=== PATIENT | female | born 1935 | race Caucasian/White ===

== ENCOUNTER 2022-05-07 01:27 | Inpatient (IN) | payer MEDICARE, BC ==
[~2022-05-07] VITALS: Ht 157.5 cm; Wt 59.0 kg
[2022-05-07] MEDS ORDERED: OXYCODONE/APAP 5-325 MG TABLET ONE (02:42)
[2022-05-07] MEDS: ONDANSETRON 4 MG/2 ML VIAL IV ONE ×2 (03:00→04:30)
[2022-05-07] MEDS: HYDROMORPHONE 1 MG/1 ML DISP.SYRIN IV ONE ×2 (03:01→04:31)
[2022-05-07] MEDS ORDERED: MONT10TA22 PO (03:46)
[2022-05-07] MEDS ORDERED: AMLO2.5T4 PO (03:46)
[2022-05-07] MEDS ORDERED: FLUT16SP BNOSTRILS (03:46)
[2022-05-07] MEDS ORDERED: LEVO75TA PO (03:47)
[2022-05-07 03:48] LABS: CARBON DIOXIDE 24 mmol/L (21-32); CHLORIDE 98 mmol/L (98-107); CREATININE 0.9 mg/dL (0.6-1.3); GLUCOSE 138 mg/dL (74-106); POTASSIUM 4.2 mmol/L (3.5-5.1); UREA NITROGEN, BLOOD 27 mg/dL (7-18)
[2022-05-07 03:49] LABS: HEMATOCRIT 38.5 % (31.2-41.9); MEAN CORPUSCULAR HEMOGLOBIN 31.5 uug (24.7-32.8); MEAN CORPUSCULAR VOLUME 95.4 fL (75.5-95.3); PLATELET COUNT (AUTO) 255 K/uL (179-408)
[2022-05-07] MEDS ORDERED: VALS160T2 PO (03:49)
[2022-05-07] MEDS ORDERED: ALBU18HF2 INH (03:51)
[2022-05-07 04:01] LABS: *BILIRUBIN,URIN NEGATIVE (NEGATIVE); *BLOOD, URINE NEGATIVE (NEGATIVE); *CLARITY,URINE CLEAR (CLEAR); *COLOR,URINE LIGHT YELLOW (YELLOW); *KETONES,URINE 2+ (NEGATIVE); *UROBILINOGEN,URINE 0.2 E.U./dl (NORMAL); LEUKOCYTE ESTERASE ,URINE NEGATIVE (NEGATIVE); NITRITE, URINE NEGATIVE (NEGATIVE); UGLUCOSE NEGATIVE (NEGATIVE)
[2022-05-07] MEDS ORDERED: ONDANSETRON 4 MG/2 ML VIAL ONE ×2 (04:25→16:30)
[2022-05-07] MEDS ORDERED: HYDROMORPHONE 1 MG/1 ML DISP.SYRIN ONE (04:25)
[2022-05-07] MEDS ORDERED: IV NS 1000 ML 1,000 ML IV ONE (05:00)
[2022-05-07] MEDS ORDERED: HYDROCODONE/APAP 5-325MG TABLET PO PRN (06:15)
[2022-05-07] MEDS ORDERED: IV NS 1000 ML 1,000 ML IV PRN (06:15)
[2022-05-07] MEDS ORDERED: REMEDY ESSENTIAL ZINC PASTE 113 GM TP PRN (06:15)
[2022-05-07] MEDS ORDERED: ACETAMINOPHEN 325 MG TABLET PO PRN (06:15)
[2022-05-07] MEDS ORDERED: MORPHINE SULFATE 2 MG/1 ML DISP.SYRIN IV PRN (06:15)
[2022-05-07] MEDS ORDERED: MAGNESIUM HYDROXIDE 30 ML LIQUID UDC PO PRN (06:15)
--- NOTE | 2022-05-07 07:19 | NUR ---
Report given to Wiley PEÑA.
--- NOTE | 2022-05-07 08:42 | NUR ---
PT WAS TRANSFERED TO ROOM #323. REPORT WAS GIVEN TO RN M/S.
--- NOTE | 2022-05-07 09:00 | NUR ---
Pt admitted form ER for tibial fracture discovered by SN[facility]. 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 Pt is able to communicate needs, on bedrest with complaints of pain in left leg. Plan is to have procedure ORIF of distal tibia and fibula of left leg by Dr. Long tomorrow 05/08/22 at 1 pm. Pending cardiac clearance. Will continue to monitor pt.
[2022-05-07 09:27] VITALS: BP 150/74
[2022-05-07] MEDS: MORPHINE SULFATE 2 MG/1 ML DISP.SYRIN IV PRN ×3 (11:07→20:46)
[2022-05-07 12:00] VITALS: BP 98/65
[2022-05-07] MEDS ORDERED: CITA40TA11 PO (12:33)
[2022-05-07] MEDS ORDERED: ALBUTEROL SULFATE 8 GM HFA.AER.AD INH PRN (14:45)
[2022-05-07] MEDS ORDERED: ALBUTEROL SULFATE 2.5 MG/3 ML NEBU NEB PRN ×2 (15:30→16:00)
[2022-05-07] MEDS ORDERED: FLUT10.62 IH (15:30)
[2022-05-07 16:10] VITALS: BP 125/86
[2022-05-07] MEDS ORDERED: CEFAZOLIN 1 G VIAL ONE (16:30)
[2022-05-07] MEDS ORDERED: LIDOCAINE-MPF 2% 5 ML VIAL ONE (16:30)
[2022-05-07] MEDS ORDERED: PROPOFOL 200 MG/20 ML BOTTLE ONE (16:30)
[2022-05-07] MEDS ORDERED: EPHEDRINE SULFATE 50 MG/ML AMPUL ONE (16:30)
[2022-05-07] MEDS ORDERED: DEXAMETHASONE SOD PHOSPHATE 4 MG INJ ONE (16:30)
[2022-05-07] MEDS ORDERED: AMLODIPINE 2.5 MG TABLET PO SCH (17:00)
[2022-05-07] MEDS: AMLODIPINE 2.5 MG TABLET PO SCH (17:13)
--- NOTE | 2022-05-07 17:13 | NUR ---
Pt complaining of left groin pain radiating to entire leg, notified MD, imaging ordered per MD. Consent signed by son for procedure tomorrow.
[2022-05-07] MEDS ORDERED: MONTELUKAST SODIUM 10 MG TABLET PO SCH (18:00)
[2022-05-07 20:00] VITALS: BP 153/83
[2022-05-07] MEDS: ONDANSETRON 4 MG/2 ML VIAL IV PRN (20:45)
[2022-05-07] MEDS: VALSARTAN 160 MG TABLET PO SCH (20:45)
[2022-05-08] MEDS: MORPHINE SULFATE 2 MG/1 ML DISP.SYRIN IV PRN ×3 (01:04→23:03)
[2022-05-08 04:00] VITALS: BP 148/75
[2022-05-08] MEDS: LEVOTHYROXINE SODIUM 75 MCG TABLET PO SCH ×2 (07:12→07:20)
[2022-05-08 07:27] LABS: HEMATOCRIT 36.1 % (31.2-41.9); MEAN CORPUSCULAR HEMOGLOBIN 32.4 uug (24.7-32.8); MEAN CORPUSCULAR VOLUME 94.1 fL (75.5-95.3); PLATELET COUNT (AUTO) 238 K/uL (179-408)
--- NOTE | 2022-05-08 07:28 | NUR ---
Received report from am nurse Kavitha on 05/07/02 pt is alert and oriented at start of shift pt asked for pain medication gave morphine 2 times during the shift and afterward gave one dose of norco 5/325 given for breakthrough pain no signs of respiratory distress noted.
[2022-05-08 08:17] LABS: CREATININE 0.7 mg/dL (0.6-1.3); MAGNESIUM 1.9 mg/dL (1.8-2.4); PHOSPHOROUS 3.2 mg/dL (2.5-4.9); POTASSIUM 4.1 mmol/L (3.5-5.1)
[2022-05-08] MEDS ORDERED: CITALOPRAM 20 MG TABLET PO SCH (09:00)
[2022-05-08] MEDS ORDERED: AMLODIPINE 2.5 MG TABLET PO SCH (09:00)
[2022-05-08] MEDS ORDERED: Medication Not On Formulary EA (Citalopram Hydrobromide (Citalopram Hbr) 40 MG) PO SCH (09:00)
[2022-05-08] MEDS ORDERED: FLUTICASONE PROP NASAL SPRAY 16 GM BOTTLE NS SCH (09:00)
[2022-05-08] MEDS: CITALOPRAM 20 MG TABLET PO SCH (09:26)
[2022-05-08 09:30] VITALS: BP 139/72
[2022-05-08] MEDS: AMLODIPINE 2.5 MG TABLET PO SCH ×2 (09:31→17:00)
[2022-05-08] MEDS: VALSARTAN 160 MG TABLET PO SCH (09:31)
[2022-05-08] MEDS ORDERED: BUPIVACAINE/EPI PF 0.25% 10 ML VIAL IJ ONE (09:53)
[2022-05-08] MEDS ORDERED: VANCOMYCIN 1000 MG VIAL ONE (09:53)
--- NOTE | 2022-05-08 12:45 | NUR ---
Pt is a/o x 3, taken to OR for procedure of ORIF of left tibia and fibula fracture by Dr. Long. IV intact and patent Monteiro will be inserted by OR nurse. Notified nurse that family would like to be contacted by doctor post op. Vitals stable upon transfer.
[2022-05-08 12:48] VITALS: BP 126/59
[2022-05-08] MEDS ORDERED: ALBUTEROL SULFATE 8 GM HFA.AER.AD ONE (12:59)
[2022-05-08] MEDS ORDERED: HYDROMORPHONE 2 MG/1 ML DISP.SYRIN ONE (13:00)
[2022-05-08] MEDS ORDERED: RACEPINEPHRINE HCL 2.25% 0.5 ML NEBU ONE (15:30)
[2022-05-08] MEDS ORDERED: ALBUTEROL SULFATE 2.5 MG/3 ML NEBU ONE (15:32)
[2022-05-08] MEDS ORDERED: IPRATROPIUM BROMIDE 0.5 MG/2.5 ML NEBU NEB PRN (17:30)
[2022-05-08] MEDS ORDERED: ALBUTEROL SULFATE 2.5 MG/ 0.5 ML NEBU IH PRN (17:30)
[2022-05-08] MEDS ORDERED: methylPREDNISolone SOD SUCC 40 MG/ML VIAL IV ONE (17:30)
--- NOTE | 2022-05-08 18:36 | NUR ---
Pt post op in recovery, got report from charge nurse that pt will be transferred to ICU overnight. All personal belongings sent home with sister and son including artem fartunlinda in contraband locker.
[2022-05-08] MEDS ORDERED: HYDROMORPHONE 1 MG/1 ML DISP.SYRIN ONE (20:12)
[2022-05-08 22:28] VITALS: BP 133/66
[2022-05-08] MEDS ORDERED: MORPHINE SULFATE 2 MG/1 ML DISP.SYRIN ONE (22:53)
[2022-05-08 23:00] VITALS: BP 125/63
[2022-05-09] VITALS (12 sets, daily range): BP systolic 86–145; BP diastolic 48–72
[2022-05-09] MEDS ORDERED: VALSARTAN 80 MG TABLET ONE (00:41)
[2022-05-09] MEDS: CHOLECALCIFEROL 1,000 UNIT TABLET PO SCH ×2 (00:45→13:06)
[2022-05-09] MEDS ORDERED: MAGNESIUM SULFATE/D5W 100 ML ONE ×2 (00:50→03:19)
[2022-05-09] MEDS: MAGNESIUM SULFATE/D5W 100 ML IV SCH ×2 (00:52→01:45)
[2022-05-09] MEDS ORDERED: CHOLECALCIFEROL 1,000 UNIT TABLET ONE (01:00)
[2022-05-09] MEDS ORDERED: HYDROMORPHONE 1 MG/1 ML DISP.SYRIN ONE ×2 (01:21→07:16)
[2022-05-09] MEDS: HYDROMORPHONE 1 MG/1 ML DISP.SYRIN IV PRN ×2 (01:27→06:45)
[2022-05-09] MEDS ORDERED: ONDANSETRON 4 MG/2 ML VIAL ONE (01:28)
[2022-05-09] MEDS: ONDANSETRON 4 MG/2 ML VIAL IV PRN (01:29)
[2022-05-09] MEDS: CEFAZOLIN 1 G in IV DEXTROSE 5% 50 ML IV SCH ×2 (06:30→06:59)
[2022-05-09] MEDS ORDERED: CEFAZOLIN 1 G VIAL ONE (06:56)
[2022-05-09] MEDS: VALSARTAN 160 MG TABLET PO SCH ×4 (09:00→21:32)
[2022-05-09] MEDS: CITALOPRAM 20 MG TABLET PO SCH (09:00)
[2022-05-09] MEDS: AMLODIPINE 2.5 MG TABLET PO SCH ×2 (09:00→16:41)
[2022-05-09] MEDS ORDERED: CITALOPRAM 10 MG TABLET ONE (09:56)
[2022-05-09] MEDS ORDERED: AMLODIPINE 2.5 MG TABLET ONE (09:56)
--- NOTE | 2022-05-09 10:20 | NUR ---
Notified Stephanie Cordova NP that Dr. Kumar states patient is downgradable. Per Stephanie, patient can be downgraded to [facility].
[2022-05-09] MEDS ORDERED: MORPHINE SULFATE 2 MG/1 ML DISP.SYRIN ONE (11:32)
[2022-05-09] MEDS: MORPHINE SULFATE 2 MG/1 ML DISP.SYRIN IV PRN ×3 (11:40→16:41)
--- NOTE | 2022-05-09 12:00 | NUR ---
2228--1200-05/09/22--RECEIVED PT POST-OP FROM . PT HAS BEEN A/OX4 WITH STABLE VS ON AEROSOL FMK. POX HAS BEEN 96-99%. PT HAS OCCASS. NON-PROD. COUGH. PT HAS SPLINT ON LEFT LOWER LEG WITH SMALL AMT OF SERO-SANG. DRNGE. IV I/P VIA LEFT FA. PT MED WITH MG RIDERS-2G IVPB EARLIER. PT ALSO HAS F/C WITH CLOUDY-GRACIE U/O-ONLY 200CC OUT. PT HAD FLATULANCE-NO STOOL. PT MED WITH DILAUDID 1MG SLOW IVP FOR SEVERE C/O PAIN(SEE EMAR). PT MED RECENTLY AT 1130 WITH MS 2MG IVP PT RATES PAIN AT 8-10/10. PT STATES RELIEF AFTER MED. PT'S SISTER IN TO VISIT. ELENA ESCOBEDO IN TO EVAL. PT. HAS BEEN AT BEDSIDE ALSO FOR MED/EVAL AND TX. PT HAS 02 TITRATED DOWN TO 5L/NC.POX 95%. RESPS REG/UNLAB. REPORT CALLED TO TIGIST PEÑA. PT HAS DISPO FOR TRANSFER TO [id number]. PT ENDORSED TO [facility] FOR TRANSFER VIA BED. KAZ PEÑA
--- NOTE | 2022-05-09 12:30 | NUR ---
Received this transfer from CCU by bed. Awake, alert, oriented x 4, hard of hearing, anxious, reports of LLE pain. Vital taken and recorded. Placed on tele, SR. Repositioned in bed comfortably. O2 at 5L/NC with O2 sat of 97%. Placed on continuous pulse ox. IVF infusing. LLE dressing intact, noted blood on heel area. Monteiro catheter to drainage bag with yellow urine.
--- NOTE | 2022-05-09 14:00 | NUR ---
Sleeping, appears comfortable. O2 at 5L/NC with O2 sat 97%. BP 105/49
[2022-05-09] MEDS: POTASSIUM CHLORIDE 20 MEQ in IV D5 1/2 NS 1000 ML 1,000 ML IV PRN (15:40)
--- NOTE | 2022-05-09 18:06 | NUR ---
Encouraged po intake. IVF infusing well. O2 at 5L/NC with O2 sat of 97%. Repositioned comfortably.
[2022-05-09] MEDS: HYDROCODONE/APAP 5-325MG TABLET PO PRN (21:31)
[2022-05-10] VITALS (7 sets, daily range): BP systolic 91–125; BP diastolic 48–63
[2022-05-10] MEDS: HYDROMORPHONE 1 MG/1 ML DISP.SYRIN IV PRN ×4 (03:28→21:25)
[2022-05-10] MEDS: POTASSIUM CHLORIDE 20 MEQ in IV D5 1/2 NS 1000 ML 1,000 ML IV PRN (04:55)
--- NOTE | 2022-05-10 06:00 | NUR ---
--PT CONT. WITH STABLE VS. IV I/P VIA LEFT FA. PT HAS BEEN ON 5L/NC. POX HAS BEEN 97-98%. RESPS REG/UNLAB. PT HAS BEEN IN SR. PT HAS LEFT SPLINT VIA LL-LEG D/I. PT HAD C/O SEVERE PAIN IN LEFT LEG BUT SHE REFUSED THE MORPHINE AND REQUESTED DILAUDID INSTEAD. RANDAL CUEVA NOTIFIED AND ORD. NORCO 5/325 PO AND DILAUDID 1MG ONLY BREAKTHROUGH MED. PT MED WITH NORCO FOR C/O POST-OP PAIN OF LEFT LEG. LATER PT C/O SEVERE PAIN IN LEFT LEG AND WAS MED WITH DILAUDID 1MG SLOW IVP. PT RATED PAIN AT 9/10. PT STATES RELIEF AFTER MED. PT HAS F/C. U/O ADEQ. PT ATTEMPTED TO USE BEDPAN-NO STOOL BUT LOTS OF FLATULANCE. PT SLEEPING QUIETLY AT THIS TIME. AM CARE GIVEN. DR. INGRAM CALLING EARLIER AND GAVE ORDERS FOR AM LABS. PT ENDORSED TO [facility] STROUD IN STABLE COND. GEN. COND HAS BEEN STABLE. RESPS HAS BEEN STABLE. KAZ PEÑA
[2022-05-10 06:20] LABS: ABG BASE EXCESS -2.4 mmol/L; ABG HCO3 21.9 mmol/L; ABG PCO2 36.4 mmHg (35.0-45.0); ABG PH 7.398 (7.350-7.450); ABG PO2 61.6 mmHg (75.0-100.0); ABG SITE RIGHT RADIAL; ABG TOTAL HEMOGLOBIN 11.6 G/dL (12.0-16.0); O2Hb 93.1 % (94.0-97.0); VENT MODE Nasal Cannula
[2022-05-10] MEDS: LEVOTHYROXINE SODIUM 75 MCG TABLET PO SCH (07:00)
[2022-05-10 07:21] LABS: HEMATOCRIT 32.1 % (31.2-41.9); MEAN CORPUSCULAR HEMOGLOBIN 32.5 uug (24.7-32.8); MEAN CORPUSCULAR VOLUME 94.7 fL (75.5-95.3); PLATELET COUNT (AUTO) 216 K/uL (179-408)
[2022-05-10 08:05] LABS: CREATININE 0.8 mg/dL (0.6-1.3); PHOSPHOROUS 1.9 mg/dL (2.5-4.9); POTASSIUM 4.4 mmol/L (3.5-5.1)
[2022-05-10] MEDS: CITALOPRAM 20 MG TABLET PO SCH (10:02)
[2022-05-10] MEDS: CHOLECALCIFEROL 1,000 UNIT TABLET PO SCH (10:03)
[2022-05-10] MEDS: VALSARTAN 160 MG TABLET PO SCH ×2 (10:06→21:00)
[2022-05-10] MEDS: AMLODIPINE 2.5 MG TABLET PO SCH ×2 (10:06→16:23)
[2022-05-10] MEDS: CEFEPIME HCL 1 G in IV DEXTROSE 5% 50 ML IV SCH ×2 (11:34→18:24)
[2022-05-10] MEDS ORDERED: VITAMINS A AND D OINT TP PRN (11:45)
[2022-05-10] MEDS ORDERED: SODIUM PHOSPHATE MM 15 MMOL in IV NORMAL SALINE 250 ML IV ONE (16:00)
--- NOTE | 2022-05-10 17:06 | NUR ---
no events noted during shift
[2022-05-10] MEDS: HYDROCODONE/APAP 5-325MG TABLET PO PRN (18:34)
[2022-05-11] MEDS: POTASSIUM CHLORIDE 20 MEQ in IV D5 1/2 NS 1000 ML 1,000 ML IV PRN (00:39)
[2022-05-11 00:47] VITALS: BP 116/60
[2022-05-11] MEDS: HYDROMORPHONE 1 MG/1 ML DISP.SYRIN IV PRN ×5 (01:50→19:50)
[2022-05-11] MEDS: CEFEPIME HCL 1 G in IV DEXTROSE 5% 50 ML IV SCH (02:57)
[2022-05-11 04:40] VITALS: BP 142/70
[2022-05-11] MEDS: LEVOTHYROXINE SODIUM 75 MCG TABLET PO SCH (06:26)
--- NOTE | 2022-05-11 07:00 | NUR ---
Pt had uneventful night Slept for long periods between pain med administration. Splint to lle with azam wrap D/I. Monteiro with good urine output.
[2022-05-11 07:33] LABS: HEMATOCRIT 31.2 % (31.2-41.9); MEAN CORPUSCULAR HEMOGLOBIN 32.3 uug (24.7-32.8); MEAN CORPUSCULAR VOLUME 94.6 fL (75.5-95.3); PLATELET COUNT (AUTO) 213 K/uL (179-408)
[2022-05-11 07:49] LABS: CREATININE 0.8 mg/dL (0.6-1.3); MAGNESIUM 1.7 mg/dL (1.8-2.4); PHOSPHOROUS 2.3 mg/dL (2.5-4.9); POTASSIUM 4.3 mmol/L (3.5-5.1)
[2022-05-11] MEDS: CHOLECALCIFEROL 1,000 UNIT TABLET PO SCH (08:04)
[2022-05-11] MEDS: HYDROCODONE/APAP 5-325MG TABLET PO PRN ×2 (08:08→17:32)
[2022-05-11] MEDS: VALSARTAN 160 MG TABLET PO SCH ×2 (08:08→21:55)
[2022-05-11] MEDS: CITALOPRAM 20 MG TABLET PO SCH (08:08)
[2022-05-11] MEDS ORDERED: MAGNESIUM OXIDE 400 MG TABLET PO ONE (09:30)
[2022-05-11 11:19] VITALS: BP 126/56
[2022-05-11] MEDS: CEFEPIME HCL 2 G in IV DEXTROSE 5% 100 ML IV SCH (15:11)
[2022-05-11] MEDS ORDERED: SODIUM PHOSPHATE MM 15 MMOL in IV NORMAL SALINE 250 ML IV ONE (16:00)
[2022-05-11 16:53] VITALS: BP 125/61
[2022-05-11 20:00] VITALS: BP 143/93
[2022-05-12] VITALS: BP 117/72
[2022-05-12] MEDS: HYDROMORPHONE 1 MG/1 ML DISP.SYRIN IV PRN ×5 (01:11→21:59)
[2022-05-12] MEDS: CEFEPIME HCL 2 G in IV DEXTROSE 5% 100 ML IV SCH ×2 (02:48→15:22)
[2022-05-12 04:00] VITALS: BP 165/74
[2022-05-12] MEDS: LEVOTHYROXINE SODIUM 75 MCG TABLET PO SCH (06:15)
--- NOTE | 2022-05-12 06:45 | NUR ---
Patient stable Medicated prn for pain CMS check to LLE WNL toes pink and warm. Monteiro remains with good output.
[2022-05-12 07:40] LABS: HEMATOCRIT 31.9 % (31.2-41.9); MEAN CORPUSCULAR HEMOGLOBIN 31.8 uug (24.7-32.8); PLATELET COUNT (AUTO) 248 K/uL (179-408)
[2022-05-12 08:13] LABS: CREATININE 0.8 mg/dL (0.6-1.3); MAGNESIUM 1.8 mg/dL (1.8-2.4); PHOSPHOROUS 3.1 mg/dL (2.5-4.9); POTASSIUM 4.6 mmol/L (3.5-5.1)
[2022-05-12] MEDS: DOCUSATE SODIUM 100 MG CAPSULE PO SCH ×2 (08:55→21:37)
[2022-05-12] MEDS: CITALOPRAM 20 MG TABLET PO SCH (08:56)
[2022-05-12] MEDS: CHOLECALCIFEROL 1,000 UNIT TABLET PO SCH (08:56)
[2022-05-12] MEDS: VALSARTAN 160 MG TABLET PO SCH ×2 (08:57→21:00)
[2022-05-12] MEDS ORDERED: FLEET ENEMA 133 ML BOTTLE RC PRN (10:15)
[2022-05-12] MEDS ORDERED: DOCUSATE SODIUM 100 MG CAPSULE PO SCH (10:15)
[2022-05-12] MEDS ORDERED: BISACODYL 10 MG SUPP.RECT RC ONE (10:30)
[2022-05-12] MEDS ORDERED: MAGNESIUM HYDROXIDE 30 ML LIQUID UDC PO PRN (11:00)
--- NOTE | 2022-05-12 11:00 | NUR ---
seen by hospitalist with orders-c/o of constipation, Dulcolax suppository given
[2022-05-12 11:32] VITALS: BP 139/70
[2022-05-12] MEDS: HYDROCODONE/APAP 5-325MG TABLET PO PRN (15:37)
[2022-05-12 15:45] VITALS: BP 155/77
--- NOTE | 2022-05-12 16:03 | NUR ---
REFUSED PT DUE TO CONSTIPATION, ENCOURAGE MOBILITY. RIGHT LEG CAST INTACT, TOES WITH GOOD CAPILLARY REFILL WARM TO TOUCH. CONTINUE WITH PAIN MANAGEMENT
[2022-05-12 19:38] VITALS: BP 107/59
[2022-05-13] MEDS: HYDROMORPHONE 1 MG/1 ML DISP.SYRIN IV PRN ×4 (02:05→15:06)
[2022-05-13] MEDS: CEFEPIME HCL 2 G in IV DEXTROSE 5% 100 ML IV SCH ×2 (03:51→14:36)
--- NOTE | 2022-05-13 05:30 | NUR ---
SHIFT NOTE; PT IS ALERT AND ORIENTED X4 PT HAS IV ANTIBIOTIC ALONG WITH SCHEDULED MEDICATION TOLERATED WELL NO SIGNS OF ADVERSE REACTION PT HAS QUINTERO DRAINING CLEAR YELLOW URINE. PT GIVEN DILAUDID 0.5MG ORDERED NO SIGNS OF ADVERSE REACTION NOTED. LAST DOSE OF DILAUDID GIVEN AT 0200 NEXT DOSE DUE AT 0600 PT DRESSING DRY AND INTACT. WILL CONTINUE TO MONITOR FOR FALL AND SAFETY
[2022-05-13 07:08] LABS: HEMATOCRIT 32.7 % (31.2-41.9); MEAN CORPUSCULAR VOLUME 94.2 fL (75.5-95.3); PLATELET COUNT (AUTO) 313 K/uL (179-408)
[2022-05-13 07:22] LABS: CREATININE 0.9 mg/dL (0.6-1.3); MAGNESIUM 2.1 mg/dL (1.8-2.4); POTASSIUM 4.4 mmol/L (3.5-5.1)
[2022-05-13] MEDS: LEVOTHYROXINE SODIUM 75 MCG TABLET PO SCH (07:26)
[2022-05-13] MEDS: DOCUSATE SODIUM 100 MG CAPSULE PO SCH (08:40)
[2022-05-13] MEDS: CITALOPRAM 20 MG TABLET PO SCH (08:41)
[2022-05-13] MEDS: CHOLECALCIFEROL 1,000 UNIT TABLET PO SCH (08:41)
[2022-05-13] MEDS: VALSARTAN 160 MG TABLET PO SCH (08:42)
[2022-05-13 10:29] VITALS: BP 125/55
[2022-05-13] MEDS ORDERED: ACET325T53 PO (10:35)
[2022-05-13] MEDS ORDERED: MAGN400O6 PO (10:35)
[2022-05-13] MEDS ORDERED: MENT113O TP (10:35)
[2022-05-13] MEDS ORDERED: HYDR-3972 PO (10:35)
[2022-05-13] MEDS ORDERED: IPRA0.2S6 NEB (10:35)
[2022-05-13] MEDS ORDERED: ALBU2.5V13 IH (10:35)
[2022-05-13] MEDS ORDERED: CITA20TA16 PO (10:35)
[2022-05-13] MEDS ORDERED: DOCU-141 PO (10:35)
[2022-05-13] MEDS ORDERED: CEFE2PIG2 IV (10:35)
[2022-05-13] MEDS ORDERED: CHOL100062 PO (10:35)
[2022-05-13 14:54] VITALS: BP 122/64
--- NOTE | 2022-05-13 18:40 | NUR ---
DISCHARGED TO [facility] VIA AMBULANCE, RREPORT GIVEN TO MATTHEW FOR CONTINUITY OF CARE
--- NOTE | 2022-05-13 18:41 | NUR ---
HOSPITALIST IN WITH ORDER FOR DISCHARGE FLAME HARDENING MACHINE SETTER MADE AWARE
--- NOTE | 2022-05-13 18:41 | NUR ---
LEARN TO SWIM INSTRUCTOR AWAITING FOR PLACEMENT.
== END 2022-05-13 18:40 | DRG 492 ==
LOC: ER 03:45 → MEDSURG3 06:32 → TRANSITION 05-08 22:43 → DOU3 05-09 11:43 → TELE-TD3 05-09 12:17 → TELE3 05-10 10:59 → MEDSURG3 05-12 11:10
PROVIDERS: ADMIT Registered Nurse; ATTEND Nurse Practitioner Acute Care
PROC: 0QSK04Z Reposition Left Fibula with Internal Fixation Device, Open Approach (ICD-10-PCS; principal; 2022-05-08)
PROC: 0QSH04Z Reposition Left Tibia with Internal Fixation Device, Open Approach (ICD-10-PCS; 2022-05-08)
PROC: 05H533Z Insertion of Infusion Device into Right Subclavian Vein, Percutaneous Approach (ICD-10-PCS; 2022-05-11)
PROC: B546ZZA Ultrasonography of Right Subclavian Vein, Guidance (ICD-10-PCS; 2022-05-11)
DX: S82.302A Unspecified fracture of lower end of left tibia, initial encounter for closed fracture (principal); J69.0 Pneumonitis due to inhalation of food and vomit; J96.01 Acute respiratory failure with hypoxia; S32.512A Fracture of superior rim of left pubis, initial encounter for closed fracture; S82.832A Other fracture of upper and lower end of left fibula, initial encounter for closed fracture; E87.1 Hypo-osmolality and hyponatremia; J98.11 Atelectasis; E86.0 Dehydration; E03.9 Hypothyroidism, unspecified; E73.9 Lactose intolerance, unspecified; E83.39 Other disorders of phosphorus metabolism; E83.42 Hypomagnesemia; J38.01 Paralysis of vocal cords and larynx, unilateral; J45.909 Unspecified asthma, uncomplicated; Z20.822 Contact with and (suspected) exposure to COVID-19; Z87.891 Personal history of nicotine dependence; Z79.890 Hormone replacement therapy; D72.829 Elevated white blood cell count, unspecified; I10 Essential (primary) hypertension; W19.XXXA Unspecified fall, initial encounter; Y93.9 Activity, unspecified; Y92.129 Unspecified place in nursing home as the place of occurrence of the external cause; K59.00 Constipation, unspecified
CPT/HCPCS: 36415; 36600; 71045; 72170; 73501; 73590; 73600; 83735; 84100; 85025; 85730; 93005; 93307; 94760; A4649; A4663; C1713; G0378; J0690; J0692; J1100; J1170; J2270; J2405; J3370; J3475; J3480; J3490; J3535; J7040; J7042